=== PATIENT | male | born 1955 | race Caucasian/White ===

== ENCOUNTER 2024-10-31 06:30 | Emergency (ER) | payer MEDICARE ==
[~2024-10-31] VITALS: Ht 175.3 cm; Wt 111.9 kg
[~2024-10-31 06:30] MED LIST: ACET-1008 PO; AMIN960L13 PO; ASPI-1264 PO; COLL30OI TOP; DAKINS; FERR750V IV; FLO0.4C PO; FOLI0.4T6 PO; LORA-268 PO; METR-159 IV; MIRT-142 PO; ONDA-243 PO; ONDA4VIA6 IV; SERT-432 PO; VANC1VIA38 IV; VANC1VIA38 PO; VITC500T PO; ZINC220T4 PO; [UNRECOGNIZED DRUG - CODE] IV
[2024-10-31] MEDS ORDERED: LORazepam 2 mg/ml vial IV PRN (06:45)
[2024-10-31 07:12] VITALS: RESP 20; O2SAT 22
[2024-10-31 07:15] VITALS: BP 29/10; PULSE 31
[2024-10-31 10:11] VITALS: TEMP 96.2
== END 2024-10-31 10:15 ==
LOC: ER 06:30
DX: J96.91 Respiratory failure, unspecified with hypoxia (principal); I46.9 Cardiac arrest, cause unspecified; E11.9 Type 2 diabetes mellitus without complications; Z88.5 Allergy status to narcotic agent; Z98.890 Other specified postprocedural states; Z79.82 Long term (current) use of aspirin; Z79.899 Other long term (current) drug therapy
CPT/HCPCS: 71045; 99285